=== PATIENT | female | born 1955 | race Two or more races ===

== ENCOUNTER 2019-09-10 00:34 | Emergency (ER) | payer OTHER ==
[~2019-09-10] VITALS: Ht 170.2 cm; Wt 61.6 kg
[2019-09-10] MEDS ORDERED: synthroid (00:54)
[2019-09-10] MEDS ORDERED: LORazepam 2 MG/ML, 1ML ONE (00:55)
--- NOTE | 2019-09-10 00:56 | NUR ---
pt arrives via [facility] auto from [place] having been sent here by hospital, apparently swallowed some garlic at [address] [place] [address], she did this as a home remedy. Pt is unable to swallow liquids, own secretions, can talk however is most hysterical currently
[2019-09-10] MEDS ORDERED: LORazepam 2 MG/ML, 1ML IVPush ONE (01:00)
[2019-09-10] MEDS ORDERED: KETAMINE 10 MG/ML, 20ML ONE (01:00)
[2019-09-10] MEDS ORDERED: KETAMINE 100 MG/ML, 5ML IV ONE (01:00)
[2019-09-10] MEDS ORDERED: LIDOCAINE-MPF 2% ,5ML ONE (01:07)
--- NOTE | 2019-09-10 01:15 | NUR ---
Pt resting much more calmly at this time after ativan, is able to speak more clearly at this time, pt to be sedated and Dr Zaidi using glidescope to ensure that pt not at risk for aspiration, pt tolerate procedure well, back to room from lobby, aware of plan of care, GI called and pt to be scoped, [facility]otech called in at this time as well.
[2019-09-10] MEDS ORDERED: ONDANSETRON 2MG/ML, 2ML ONE (01:31)
--- NOTE | 2019-09-10 01:39 | NUR ---
ENDO TEAM CALLED IN
--- NOTE | 2019-09-10 01:57 | NUR ---
GI at bedside, Dr David, talking with pt and .
[2019-09-10] MEDS ORDERED: PROPOFOL 10 MG/ML, 20ML ONE (01:59)
--- NOTE | 2019-09-10 03:04 | NUR ---
pt tolerated procedure well. Pt now awake and vitals back to baseline. spouse at bedside. pt has no needs at this time. call light in reach
[2019-09-10 03:30] VITALS: BP 103/49
[2019-09-10] MEDS ORDERED: ONDANSETRON 2MG/ML, 2ML IVPush ONE (03:30)
== END 2019-09-10 04:07 | disposition home or self-care (01) ==
LOC: ED 03:50
DX: T17.228A Food in pharynx causing other injury, initial encounter (principal); X58.XXXA Exposure to other specified factors, initial encounter; Y93.89 Activity, other specified; Y92.89 Other specified places as the place of occurrence of the external cause; Y99.8 Other external cause status
CPT/HCPCS: 43239; 43247; 88305; 93005; 96374; 96375; 99152; 99285; J2060; J2405; 88342